=== PATIENT | female | born 1950 | race Caucasian/White ===

== ENCOUNTER 2016-07-22 19:04 | Observation (INO) | payer OTHER ==
--- NOTE | 2016-07-22 19:40 | NUR ---
PER PT IN BED X 6 DAYS, DRINKING BUT NOT EATING VOMITING ALL THE TIME NO FEVER, RELATIVE HAS FLU. REFLUX FROM VOMITING.
[2016-07-22] MEDS ORDERED: BUPROPION XL300 M1 PO (19:41)
[2016-07-22] MEDS ORDERED: CELECOXIB200 M1 PO (19:41)
[2016-07-22] MEDS ORDERED: SERTRALINE HCL100 MG PO (19:41)
[2016-07-22] MEDS ORDERED: TRIAMTERENE-HC1 EAC1 PO (19:41)
[2016-07-22] MEDS ORDERED: ATORVASTATIN CA40 M1 PO (19:42)
[2016-07-22] MEDS ORDERED: ASPIRIN EC81 M1 PO (19:42)
[2016-07-22] MEDS ORDERED: METOPROLOL TART50 M1 PO (19:42)
[2016-07-22] MEDS ORDERED: SUBOXONE 2 MG-1 EACH SL (19:43)
--- NOTE | 2016-07-22 19:44 | NUR ---
PT REPORTS ON SUBOXONE FOR A LONG TIME FRO PAIN MANAGEMENT
--- NOTE | 2016-07-22 20:22 | NUR ---
PT AMBULATORY TO ROOM 19, AWAITING PROVIDER EVAL. REPORTS REPEATED VOMITING GASTRIC CONTENTS, NO ABD PAIN OR DIARRHEA, SOME HEARTBURN. TAKING LIQUIDS OK. UNSURE IF SHE HAS FEVERS BUT DOES C/O SWEATING.
--- NOTE | 2016-07-22 21:01 | NUR ---
PT NOW C/O MILD ABD PAIN AT TIME; STANDING ORDERS FOR ABD PAIN AGE >65 PLACED WHILE PT AWAITS EVAL.
--- NOTE | 2016-07-22 21:10 | ED GI/GU/ABDOMINAL COMPLAINT ---
History of Present Illness General Chief Complaint: Nausea, Vomiting, Diarrhea Stated Complaint: VOMITING Source: patient Exam Limitations: no limitations Allergies Coded Allergies: No Known Allergies (07/22/16) Triage Note: PER PT IN BED X 6 DAYS, DRINKING BUT NOT EATING VOMITING ALL THE TIME NO FEVER, RELATIVE HAS FLU. REFLUX FROM VOMITING. Triage Nurses Notes Reviewed? yes ? N Is pt currently ? No HPI: This patient is a 66-year-old female who presented to the emergency department today for evaluation of multiple complaints. The patient reported that starting about 6 days ago she began vomiting approximately 2 times a day with no blood in the vomitus and associated nausea. The patient reported that she has been feeling weak and tired. The patient reported that her 5-year-old son currently has the flu. The patient reported tactile fevers and chills. She reported having the sweats. She also reported a cough productive of clear sputum. The patient denied any headaches, visual changes, chest pain, difficulty breathing, abdominal pain, constipation, diarrhea, blood in the stool, or any other associated symptoms. She reported that she has been trying to stay hydrated, but reported that she vomits whenever she tries to eat any food. (PEDRO LUIS SHARP,SHILO) Vital Signs & Intake/Output Vital Signs & Intake/Output Vital Signs Date Time Temp Pulse Resp B/P Pulse O2 O2 Flow FiO2 Ox Delivery Rate 07/23 0607 98.2 68 18 114/58 98 Room Air 07/23 0242 98.4 75 18 116/64 99 Room Air 07/22 2312 99.0 77 18 118/56 97 Room Air 07/22 2121 99.0 77 18 113/56 96 Room Air ED Intake and Output 07/23 0000 07/22 1200 Intake Total 2400 Output Total Balance 2400 Intake, IV 2000 Intake, Oral 400 Patient 140 lb Weight Reconcile Medications Aspirin (Ecotrin*) 81 MG TABLET.DR 1 TAB PO DAILY HEART (Reported) Atorvastatin Calcium 40 MG TABLET 1 TAB PO DAILY CHOL (Reported) Buprenorphine HCl/Naloxone HCl (Suboxone 2 MG-0.5 MG Sl Film) 2 MG-0.5 MG FILM 1 STR SL DAILY PAIN MANAGEMENT (Reported) Bupropion HCl (Bupropion XL) 300 MG TAB.ER.24H 1 TAB PO QAM ANXIETY (Reported ) Celecoxib 200 MG CAPSULE 1 CAP PO DAILY ARTHRITIS (Reported) Metoprolol Tartrate 50 MG TABLET 1 TAB PO BID HTN (Reported) Ondansetron (Zofran Odt) 4 MG TAB.RAPDIS 1 TAB SL TID PRN NAUSEA, VOMITING Oseltamivir Phosphate (Tamiflu) 75 MG CAPSULE 1 CAP PO BID INFLUENZA Oseltamivir Phosphate (Tamiflu) 75 MG CAPSULE 1 CAP PO BID INFLUENZA Sertraline HCl 100 MG TABLET 1 TAB PO DAILY ANXIETY (Reported) Triamterene/Hydrochlorothiazid (Triamterene-Hctz 37.5-25 MG Tb) 37.5 MG-25 MG TABLET 1 TAB PO DAILY HTN (Reported) (ILENE SUNG,SHAWNA Mchugh) Past History Travel History Traveled to [place] past 21 day No Medical History Any Pertinent Medical History? see below for history Neurological: NONE EENT: NONE Cardiovascular: HTN, CHOL Respiratory: NONE Gastrointestinal: NONE Hepatic: NONE Renal: NONE Musculoskeletal: NONE Psychiatric: anxiety Surgical History Surgical History: non-contributory Psychosocial History What is your primary language [place] Citizen Tobacco Use: Never used Family History Hx Contributory? No (SHILO CLOUD PA-C) Review of Systems Review of Systems Constitutional: Reports: see HPI. EENTM: Reports: no symptoms. Respiratory: Reports: no symptoms. Cardiovascular: Reports: no symptoms. GI: Reports: see HPI. Genitourinary: Reports: no symptoms. Musculoskeletal: Reports: no symptoms. Skin: Reports: no symptoms. Neurological/Psychological: Reports: no symptoms. All Other Systems: Reviewed and Negative (SHILO CLOUD PA-C) Physical Exam Physical Exam Gastrointestinal: normal bowel sounds, soft, non-tender, no organomegaly, NO REBOUND OR GUARDING. nO PERITONEAL SIGNS. nONDISTENDED. Comments: Well-developed well-nourished person in no acute distress HEENT: Normal EENT exam, head normocephalic, moist mucous membranes PERRLA bilaterally. No pharyngeal injection. Normal pharyngeal edema or lesions Neck: Supple, no lymphadenopathy Back: Normal inspection. Normal gait Cardiovascular: Regular rate and rhythm with no murmurs, rubs or gallops Respiratory: Chest nontender. No respiratory distress. Breath sounds clear to auscultation bilaterally with no wheezes, rales, or rhonchi. Diminished breath sounds Extremity: Normal and equal pulses Neuro: Alert oriented x3, cranial nerves II through XII grossly intact. Skin: No appreciable rash on exposed skin, skin is warm and dry. Psych: Mood and affect is normal Core Measures ACS in differential dx? Yes Severe Sepsis Present: No Septic Shock Present: No (PEDRO LUIS SHARP,SHILO) Progress Differential Diagnosis: AAA, AMI, appendicitis, biliary colic, bowel obstruction , colon cancer, cholecystitis, diverticulitis, endometritis, gastritis, hepatitis, ischemic bowel, inflamm bowel dis, kidney stone, pancreatitis, PID/ cervicitis, PUD/GERD, perforated viscous, UTI/pyelo, INFLUENZA, VIRAL SYNDROME Diagnostic Imaging: Viewed by Me: Radiology Read. Discussed w/RAD: Radiology Read. CXR Impression: PATIENT: PATRICIA GRANADOS PRESENT AGE: 66 PATIENT ACCOUNT NO: [id number] : 48 LOCATION: [facility] ORDERING PHYSICIAN: SHILO CLOUD PA-C SERVICE DATE: 07/22/16 EXAM TYPE: RAD - XRY-CHEST XRAY, PA AND LATERAL EXAMINATION: XR CHEST CLINICAL INFORMATION: Cough and sputum COMPARISON: None TECHNIQUE: 2 views of the chest were obtained. FINDINGS: Lungs are clear. No pulmonary vascular congestion. No infiltrate or pleural effusion. The heart size is normal. The cardiac and mediastinal contours are normal. There are calcifications of the thoracic aorta. There are multilevel degenerative changes of dorsal spine. IMPRESSION: Unremarkable examination. DICTATED BY: RYNE GANDARA MD DATE/TIME DICTATED:07/22/162222 HPLC CHEMIST :MAKI DATE/TIME TRANSCRIBED:07/22/162222 CONFIDENTIAL, DO NOT COPY WITHOUT APPROPRIATE AUTHORIZATION. <Electronically signed in Other Vendor System> SIGNED BY: RYNE GANDARA MD 07/22/162226 Initial ED EKG: normal axis, normal intervals, normal sinus rhythm, nonspecific ST T wave chg, 61 BPM Hand-Off Endorsed To: ILENE SUNG,SHAWNA Mchugh Endorsed Time: 2300 Pending: labs, other (PEDRO LUIS SHARP,SHILO) Plan of Care: Orders Procedure Date/time Status Discharge Patient 07/23 0608 Active TROPONIN LEVEL 07/23 0130 Complete EKG 07/[address] in observation 07/22 2238 Active Patient Data 07/22 2238 Active Vital Signs 07/22 2238 Active Code Status 07/22 2238 Active Intake & Output 07/22 2201 Active RAPID VIRAL INFLUENZA A 07/22 2108 Complete BLOOD CULTURE 07/22 2108 Active VIRAL CULTURE 07/22 2108 Active LACTIC ACID 07/22 2108 Complete TROPONIN LEVEL 07/22 2100 Complete COMPREHENSIVE METABOLIC PANEL 07/22 2100 Complete CBC WITHOUT DIFFERENTIAL 07/22 2100 Complete EKG 07/22 2100 Active Laboratory Tests 07/23/16 0133: Troponin I 0.03 07/23/16 0009: Lactic Acid Cancelled 07/22/162149: Lactic Acid 0.8 07/22/162129: Anion Gap 12, Estimated GFR 37 L, BUN/Creatinine Ratio 23.6, Glucose 96, Calcium 9.9, Total Bilirubin 0.8, AST 30, ALT 31, Alkaline Phosphatase 97, Troponin I 0.03, Total Protein 8.0, Albumin 4.3, Globulin 3.7, Albumin/Globulin Ratio 1.2, CBC w Diff NO MAN DIFF REQ, RBC 4.27, MCV 89.2, MCH 29.6, RDW 12.9, MPV 8.8, Gran % 66.0, Lymphocytes % 24.6, Monocytes % 8.0, Eosinophils % 1.2, Basophils % 0.2, Absolute Granulocytes 4.4, Absolute Lymphocytes 1.6, Absolute Monocytes 0.5, Absolute Eosinophils 0.1, Absolute Basophils 0, PUBS MCHC 33.2 07/22/162108: Virus Culture Pending Microbiology 07/22 2144 BLOOD: Blood Culture - RES 07/22 2129 BLOOD: Blood Culture - RES Departure Departure Disposition: HOME OR SELF CARE Condition: Stable Clinical Impression Primary Impression: Influenza Referrals: UNKNOWN (PCP) Additional Instructions: Rest and be sure to stay hydrated. Take medication for nausea as prescribed. You may take [id number] Motrin or Tylenol for fevers. DISCUSSED, YOUR POTASSIUM WAS SLIGHTLY DECREASED HEAR IN THE EMERGENCY DEPARTMENT. You received medication for this. Please follow-up with your primary care physician and have a recheck of your potassium level at that time. Departure Forms: Customer Survey General Discharge Information Observation Note Spoke With: RADHA SUNG,ROSS Physician Advisor Notified: ISIDRO FRANCO DO Place Patient In: ED Observation Rationale for Observation: My rational for observation is as follows [this patient is a 66-year-old female who presented to the emergency department today for 6 days of vomiting and weakness. Positive influenza A. This person has a creatinine level of 1.4. She has a potassium level of 3.2 and a slightly decreased sodium level. Nonspecific EKG changes. Troponin level 0.03. This patient will need IV fluids , IV antiemetics, potassium supplementation, serial EKGs, serial troponins, and close monitoring. Premature discharge could prove medically harmful.]. (PEDRO LUIS SHARP,SHILO) Departure Prescriptions: Current Visit Scripts Oseltamivir Phosphate (Tamiflu) 1 CAP PO BID #10 CAP Oseltamivir Phosphate (Tamiflu) 1 CAP PO BID #10 CAP Ondansetron (Zofran Odt) 1 TAB SL TID PRN NAUSEA, VOMITING #10 TAB Comments 07/23/16, 2:15am.... pt feeling better after supportive measures. Pt safe for discharge this morning at 6am when she can secure a ride home. PA/WHIP SAWYER Co-Sign Statement Statement: ED Attending supervision documentation- [x] I saw and evaluated the patient. I have also reviewed all the pertinent lab results and diagnostic results. I agree with the findings and the plan of care as documented in the PA's/WHIP SAWYER's documentation. [] I have reviewed the ED Record and agree with the PA's/WHIP SAWYER's documentation. [] Additions or exceptions (if any) to the PAs/WHIP SAWYER's note and plan are summarized below: [] (ILENE SUNG,SHAWNA Mchugh) PA/WHIP SAWYER Co-Sign Statement Statement: ED Attending supervision documentation- [X] I saw and evaluated the patient. I have also reviewed all the pertinent lab results and diagnostic results. I agree with the findings and the plan of care as documented in the PA's/WHIP SAWYER's documentation. [X] I have reviewed the ED Record and agree with the PA's/WHIP SAWYER's documentation. [] Additions or exceptions (if any) to the PAs/WHIP SAWYER's note and plan are summarized below: [] (RADHA SUNG,ROSS) ED Attending Observation Initial Observation Note: I have seen and personally examined PATRICIA GRANADOS on 07/23/16 at 0236. I agree with the current emergency department documentation. The disposition (admission or discharge) is uncertain at this time, she needs a period of observation for the following reason(s): pt with influenza, myalgia, not feeling well, with hypokalemia and non specific ekg changes. Pt merits iv fluids and supportive measures. repeat trop and ekg. The ED Nurse caring for this patient has been personally informed as to what the patient is being observed for. Observation Re-Evaluation: I have reevaluated PATRICIA GRANADOS on 07/23/16 at 0236. The physical findings that support the continued need to observe this patient include .pt feeling well after supportive measures. Pt wishes to go this morning when she can secure a ride. Observation Discharge: I have reevaluated PATRICIA GRANADOS on 07/23/16 at 0608. The patient is: ([x]): Stable for discharge (): To be admitted to Nursing Floor (): To be placed in Observation on Nursing Floor (): For transfer to other facility The patient was being observed for influenza. As a result of that observation, I have determined that she is feeling well after supportive measures. She is safe for discharge and will complete a course of Tamiflu. I encouraged close follow up and return to ED if she is not feeling better. Trops/ekg benign. (ILENE SUNG,SHAWNA Mchugh)
[2016-07-22 22:05] LABS: ABSOLUTE BASOPHIL COUNT 0 /CUMM (0.0-0.2); ABSOLUTE EOSINOPHIL COUNT 0.1 /CUMM (0.0-0.7); ABSOLUTE GRANULOCYTE CT 4.4 /CUMM (1.4-6.5); ABSOLUTE LYMPH COUNT 1.6 /CUMM (1.2-3.4); ABSOLUTE MONOCYTE COUNT 0.5 /CUMM (0.10-0.60); BASOPHIL % 0.2 % (0.0-2.0); EOSINOPHIL % 1.2 % (0-5); HEMATOCRIT 38.1 % (37-47); MEAN CORPUSCULAR HGB 29.6 PG (27.0-31.0); MEAN CORPUSCULAR HGB CONC 33.2 G/DL (33.0-37.0); MEAN CORPUSCULAR VOLUME 89.2 FL (81.0-99.0); MEAN PLATELET VOLUME 8.8 FL (7.4-10.4); PLATELET COUNT 185 /CUMM (130-400); RBC DISTRIBUTION WIDTH 12.9 % (11.5-14.5); RED BLOOD CELL CT 4.27 /CUMM (4.20-5.40); WHITE BLOOD CELL COUNT 6.6 /CUMM (4.8-10.8)
--- NOTE | 2016-07-22 22:21 | NUR ---
CRITICAL TEST RESULTS [id number] PATRICIA GRANADOS 66 F TESTS AND RESULTS: POSITIVE FLU A Results received and read back by: BETSY GRUBER Results received date and time: 07/22/162220 The following provider was notified of the results, and read the results back: CIERRA CLOUD Notified date and time: 07/22/16 at 2221
--- NOTE | 2016-07-22 22:21 | NUR ---
TO XRAY AND BACK VIA STRETCHER.
--- NOTE | 2016-07-22 22:27 | RADIOLOGY REPORT ---
EXAMINATION: XR CHEST CLINICAL INFORMATION: Cough and sputum COMPARISON: None TECHNIQUE: 2 views of the chest were obtained. FINDINGS: Lungs are clear. No pulmonary vascular congestion. No infiltrate or pleural effusion. The heart size is normal. The cardiac and mediastinal contours are normal. There are calcifications of the thoracic aorta. There are multilevel degenerative changes of dorsal spine. IMPRESSION: Unremarkable examination.
[2016-07-22] MEDS ORDERED: ZOFRAN ODT4 M1 SL (22:28)
--- NOTE | 2016-07-22 22:42 | NUR ---
CIERRA CLOUD AT BEDSIDE TO DISCUSS PLAN OF CARE FOR OBSERVATION. PT GIVEN CRACKERS AND WATER FOR PO CHALLENGE PRIOR TO GIVING PO POTASSIUM.
--- NOTE | 2016-07-22 22:58 | NUR ---
PT TOLERATING WATER AND CRACKERS WELL. MEDICATED WITH POTASSIUM AND 2ND LITER IVF INFUSING.
--- NOTE | 2016-07-22 23:13 | NUR ---
PT MOVED TO ROOM 3, PLACED ON DROPLET PRECAUTIONS, REPORT GIVEN TO MATTI DAMON. PT ABLE TO AMBULATE TO/FROM BATHROOM, PROVIDED WITH MASKS AND AWARE TO WEAR A MASK WHEN OUT OF ROOM. PT VOICING NO COMPLAINTS, TOLERATING PO AT THIS TIME.
[2016-07-23] MEDS ORDERED: TAMIFLU75 M1 PO ×2 (01:22→01:28)
--- NOTE | 2016-07-23 02:04 | NUR ---
PT MEDICATED WITH 75MG TAMIFLU PER EMAR
--- NOTE | 2016-07-23 06:05 | NUR ---
PT CLEARED FOR DISCHARGE BY DR. ODOM. IV REMOVED BY RN YESSY, CATHETER INTACT. PT GIVEN RX FOR ZOFRAN AND TAMIFLU, PT VERBALIZED RX USE AND SIDE EFFECTS. PT VERBALIZED DC UNDERSTANDING
[2016-07-23 06:07] VITALS: BP 114/58
== END 2016-07-23 05:58 ==
LOC: ERH 19:04 → ERHI 22:39
PROVIDERS: Emergency Medicine; ADMIT Emergency Medicine
DX: J09.X3 Influenza due to identified novel influenza A virus with gastrointestinal manifestations (principal); R11.2 Nausea with vomiting, unspecified
CPT/HCPCS: 87040; 87804; 87804-59; 93005; 93010; 96361; 96374; G0378; J2405